=== PATIENT | female | born 1955 | race Caucasian/White ===

== ENCOUNTER 2016-07-20 15:40 | Emergency (ER) | payer OTHER ==
[~2016-07-20] VITALS: Ht 154.9 cm; Wt 104.2 kg
[2016-07-20 16:35] LABS: HEMOGLOBIN 14.1 g/dL (11.7-16.4)
[2016-07-20 16:45] LABS: BLOOD UREA NITROGEN 17 mg/dL (7-18)
[2016-07-20 16:49] LABS: ASPARTATE AMINO TRANSFERASE 25 U/L (15-37)
[2016-07-20 16:58] LABS: IS PT STATUS REG ER OR PRE ER? YES
[2016-07-20 22:16] VITALS: BP 126/70
== END 2016-07-20 22:20 | disposition home or self-care (01) ==
LOC: ED 17:25
DX: R00.2 Palpitations (principal); R07.2 Precordial pain; R79.1 Abnormal coagulation profile
CPT/HCPCS: 36415; 70450; 71020; 80053; 83735; 84100; 84439; 84443; 84484; 85025; 85610; 93005

== ENCOUNTER → 2016-09-20 | Outpatient (CLI) | payer OTHER ==
[~2016-09-20] MED LIST: REGADENOSON 0.4 MG/5 ML SYRINGE ONE
== END | disposition home or self-care (01) ==
LOC: CFH 12:16
PROVIDERS: ATTEND Internal Medicine Cardiovascular Disease
DX: R06.02 Shortness of breath (principal); Z82.49 Family history of ischemic heart disease and other diseases of the circulatory system
CPT/HCPCS: 78452; 93017; A9502; J2785